=== PATIENT | male | born 1970 | race Caucasian/White ===

== ENCOUNTER → 2017-05-25 | Outpatient (CLI) | payer BC | END | disposition home or self-care (01) | LOC: GMAM 10:53 | PROVIDERS: ATTEND Family Medicine | DX: Z12.5 Encounter for screening for malignant neoplasm of prostate (principal); E29.1 Testicular hypofunction ==

== ENCOUNTER → 2018-01-23 | Outpatient (CLI) | payer BC | LOC: GMAM 11:20 | PROVIDERS: ATTEND Family Medicine | DX: R97.20 Elevated prostate specific antigen [PSA] (principal) ==

== ENCOUNTER → 2020-07-08 | Outpatient (CLI) | payer BC | LOC: GMAM 10:18 | PROVIDERS: ATTEND Family Medicine | DX: Z00.00 Encounter for general adult medical examination without abnormal findings (principal) ==

== ENCOUNTER → 2020-07-24 | Outpatient (CLI) | payer BC | LOC: GMAM 10:43 | PROVIDERS: ATTEND Family Medicine | DX: R73.09 Other abnormal glucose (principal) ==

== ENCOUNTER 2020-08-29 05:49 | Day surgery (SDC) | payer BC ==
[2020-08-29] MEDS ORDERED: PROPOFOL 200 MG/20 ML VIAL IV ONE (05:50)
[2020-08-29] MEDS ORDERED: LIDOCAINE 1% 10 ML VIAL INJ ONE (05:50)
[2020-08-29] MEDS ORDERED: LACTATED RINGERS 1,000 ML ONE (06:42)
--- NOTE | 2020-08-29 09:08 | OP ---
DATE OF PROCEDURE: 08/29/20 PREOPERATIVE DIAGNOSIS: 1. Screening colonoscopy. POSTOPERATIVE DIAGNOSIS: 1. Normal. PROCEDURE: 1. Colonoscopy. SURGEON: Jeffry Sims MD ANESTHESIA: General. FINDINGS: Normal. COMPLICATIONS: None. ESTIMATED BLOOD LOSS: None. PLAN: Discharge. INDICATION: As stated. PROCEDURE: General anesthesia was induced in the lateral position. Digital rectal exam was normal. The colonoscope was inserted and and passed all the way to the cecum as identified by the cecum and the terminal ileum spewing bile. Upon withdrawal, there was poor prep in the proximal transverse colon. We did spend a lot of time irrigating and suctioning and having to flush our channel quite a few times, but we got out the stool through the transverse colon for an adequate exam. On further withdrawal, all the mucosal surfaces appeared normal. There were no polyps seen and no diverticulosis, no significant hemorrhoids.The patient tolerated the procedure and was taken to Recovery to be discharged. #[id number] cc: Rowdy Calderon MD MTDD
[2020-08-29 09:49] VITALS: BP 116/78; TEMP 97.3; O2SAT 99
== END 2020-08-29 09:45 | disposition home or self-care (01) ==
LOC: AMB 05:49
PROVIDERS: ATTEND Surgery
DX: Z12.11 Encounter for screening for malignant neoplasm of colon (principal); E78.00 Pure hypercholesterolemia, unspecified; Z79.84 Long term (current) use of oral hypoglycemic drugs; Z79.899 Other long term (current) drug therapy
CPT/HCPCS: 00812; 45378; J3490; J7120